=== PATIENT | female | born 1955 | race Caucasian/White ===

== ENCOUNTER 2023-08-19 19:26 | Emergency (ER) | payer MEDICARE, SELFPAY ==
[2023-08-19 19:30] VITALS: BP 170/85; PULSE 88; RESP 16; TEMP 36.8; O2SAT 95; BMI 25.7
--- NOTE | 2023-08-19 20:18 | XR_ITS ---
PROCEDURE INFORMATION: Exam: XR Chest Exam date and time: 08/19/2023 8:26 PM Age: 68 years old Clinical indication: Dyspnea TECHNIQUE: Imaging protocol: Radiologic exam of the chest. Views: 1 view. COMPARISON: No relevant prior studies available. FINDINGS: Lungs: Mildly increased central interstitial markings. No consolidation. Pleural spaces: Unremarkable. No pleural effusion. No pneumothorax. Heart/Mediastinum: Unremarkable. No cardiomegaly. Bones/joints: Unremarkable. IMPRESSION: Mildly increased central interstitial markings which may be seen with pulmonary edema or viral process.
--- NOTE | 2023-08-19 20:20 | HMH.EDGENADL ---
Discharge Plan Disposition Patient Disposition: Home, Self-Care Prescriptions Prescriptions: New benzonatate 100 mg capsule 100 mg PO TID PRN (Reason: cough) 5 Days Qty: 20 0RF albuterol sulfate 90 mcg/actuation HFA aerosol inhaler 4 inh inhalation Q4H PRN (Reason: shortness of breath or wheezing) Qty: 8.5 0RF Rx Instructions: 4 puffs every 4 hours for 48 hours then as needed for shortness of breath or wheezing following doxycycline hyclate 100 mg capsule 100 mg PO BID 10 Days Qty: 20 0RF prednisone 50 mg tablet 50 mg PO DAILY 5 Days Qty: 5 0RF Rx Instructions: Please begin 1 day after ED visit Clinical Impressions Clinical Impression: Acute exacerbation of chronic obstructive pulmonary disease, Muscle strain of anterior chest wall Discharge ED Provider: Phyllis Kraus General Adult HPI General Chief complaint: Upper Respiratory Infection Stated complaint: Cough Time Seen by Provider: 08/19/23 20:12 Mode of Arrival: Ambulatory Source of Information: Patient Limitations: No Limitations Description of Symptoms (Recalled from ER Triage Doc. by RN): Presents to ED with c/o a productive cough she has has since tuesday. Patient reports being Rx'd steroids a month ago for similiar episode and started taking this medication Tuesday with no relief. Denies fever or meds [employer]. Patient states both grandkids have RSV at this time. PMH: Emphysema History of Present Illness HPI narrative: Patient is a 68-year-old female with a known history of emphysema who presents today with 4-day history of cough and right anterior chest wall pain. She states that she was diagnosed with a COPD exacerbation a month ago and was placed on antibiotics and had complete resolution of her symptoms. She also was given a prescription of prednisone which she had not yet filled and she started feeling sick 4 days ago shows she went ahead and fill this prescription. This was a 10 mg prednisone prescription and she took 6 on day 1 5 on day 2 for day 3 and 3 today. She has not had significant improvement in her symptoms and the main reason she came to the emergency department today was because of the chest pain. She states that the right anterior chest wall discomfort that is tender to the touch and worse with movement and cough. She believes it is her chest wall but this was what prompted her to come to the emergency department. She also has sick contacts at home with grandkids that have RSV. She denies any fevers or chills. Related Data Previous Rx's Medication Instructions Recorded albuterol sulfate 90 mcg/actuation 4 inh inhalation Q4H PRN shortness 08/19/23 aerosol inhaler of breath or wheezing #8.5 grams benzonatate 100 mg capsule 100 mg PO TID PRN cough 5 days #20 08/19/23 caps doxycycline hyclate 100 mg capsule 100 mg PO BID 10 days #20 caps 08/19/23 prednisone 50 mg tablet 50 mg PO DAILY 5 days #5 tabs 08/19/23 Allergies Allergy/AdvReac Type Severity Reaction Status Date / Time No Known Allergies Allergy Verified 08/19/23 20:33 [facility] Disclaimer: The information contained in this section may have been updated after the patient was seen, as this information can be updated by other users. Social History Smoking Status: Current every day smoker alcohol intake: never current occupational status: other Travel in the last 8 weeks: None ROS Obtained: Yes All systems reviewed & no additional complaints except as documented Physical Exam General General appearance: alert Respiratory Respiratory exam: Present other (Left basilar crackles no respiratory distress oxygen saturations normal on room air) Cardiovascular Cardiovascular exam: Present regular rate Neurological Exam Neurological exam: Present alert and oriented X3 Medical Decision Making Adriano Inquiry Pt receiving controlled substance: No Vital Signs: 08/19/23 19:30 08/19/23 20:45 08/19/23 21:00 Temperature 98.2 F T
--- NOTE | 2023-08-19 20:36 | ECG_ITS ---
APPROVED REPORT Exam: Resting ECG HR:67 bpm ECG Measurements Heart Rate 67 AXES DC 148 P 50 QRSd 74 QRS 63 QT 376 T 61 QTc 392 Conclusion SINUS RHYTHM NORMAL ECG UNCONFIRMED REPORT Electronically signed by : Joselito Zapata MD 08/22/2023 08:27:20
[2023-08-19 20:45] VITALS: BP 169/97; PULSE 82; O2SAT 96
--- NOTE | 2023-08-19 20:53 | PC.NURSE ---
Rounded on patient; call light within reach of patient.
[2023-08-19 21:00] VITALS: BP 173/96; PULSE 75; RESP 18; O2SAT 95
[2023-08-19 21:03] LABS: Basophils # 0.1 K/mm3 (0-0.2); Basophils % 0.4 % (0.1-2.0); Eosinophils # 0.1 K/mm3 (0.0-0.4); Eosinophils % 0.6 % (0.1-12.0); Hematocrit 40.7 % (37.0-47.0); Hemoglobin 14.2 g/dL (12.2-16.2); Lymphocytes # 1.1 K/mm3 (0.7-4.5); Lymphocytes % 7.6 % (10-50); Mean Corpuscular HGB Conc 34.8 g/dL (31.8-35.4); Mean Corpuscular Hemoglobin 30.2 pg (27.0-31.2); Mean Platelet Volume 8.3 fl (7.4-10.4); Monocytes # 0.5 K/mm3 (0.1-1.0); Monocytes % 3.7 % (1.7-9.3); Neutrophils # 12.7 K/mm3 (1.8-7.8); Neutrophils % 87.7 % (37.0-80.0); Platelet Count 226 K/mm3 (142-424); Red Blood Count 4.68 M/mm3 (4.20-5.40); Red Cell Distribution Width 13.9 % (11.5-17.5); White Blood Count 14.5 K/mm3 (4.8-10.8)
[2023-08-19 21:06] LABS: Chloride 101 mmol/L (98-107); MANUAL DIFFERENTIAL MANUAL DIFFERENTIAL (MANUAL DIFF); Sodium 137 mmol/L (136-145)
[2023-08-19 21:09] LABS: Alanine Aminotransferase 38 U/L (12-78); Albumin/Globulin Ratio 1.3 (1.1-1.8); Alkaline Phosphatase 82 U/L (38-126); Aspartate Amino Transferase 42 U/L (14-36); Bilirubin,Total 0.6 mg/dl (0.2-1.3); Blood Urea Nitrogen 26 mg/dl (7-17); Calcium 9.5 mg/dl (8.4-10.2); Carbon Dioxide 28 mmol/L (22.0-30.0); Creatinine Clearance Estimated 54 mL/min (50-200); Estimated Glomerular Filt Rate 100 ml/min (>60); GFR (African American) 121 ML/MIN (>60); Globulin 3.8 g/dL (1.3-3.2); Glucose 122 mg/dl (74-100); Total Protein,Serum 8.8 g/dl (6.3-8.2)
[2023-08-19 21:16] LABS: Coronavirus 19, PCR Not Detected (NotDetected); Influenza A, PCR Not Detected (NotDetected); Influenza B, PCR Not Detected (NotDetected)
[2023-08-19 21:22] LABS: Troponin I < 0.01 ng/ml (0.00-0.034)
[2023-08-19 21:30] VITALS: BP 167/92; PULSE 80; RESP 17; O2SAT 94
[2023-08-19 21:43] LABS: Lymphocytes % 7 % (10-50); Monocytes % 1 % (2-9); Neutrophils % 92 % (42-76); Platelet Estimate Normal; RBC Morphology Normal; Total Cells Counted 100
[2023-08-19 22:01] VITALS: BP 167/92; PULSE 88; RESP 17; TEMP 36.8; O2SAT 93
== END 2023-08-19 22:03 | disposition home or self-care (01) ==
LOC: ER 20:46
PROVIDERS: Emergency Provider Student in an Organized Health Care Education/Training Program
DX: J44.1 Chronic obstructive pulmonary disease with (acute) exacerbation (principal); S29.011A Strain of muscle and tendon of front wall of thorax, initial encounter; R05.1 Acute cough; F17.210 Nicotine dependence, cigarettes, uncomplicated; Z20.828 Contact with and (suspected) exposure to other viral communicable diseases; X50.0XXA Overexertion from strenuous movement or load, initial encounter
CPT/HCPCS: 71045; 80053; 84484; 85007; 85025; 87636; 93005; 96374; 99284